=== PATIENT | male | born 1970 | race Caucasian/White ===

== ENCOUNTER → 2017-06-05 | Outpatient (CLI) | payer BC ==
--- NOTE | 2017-06-05 14:41 | DIAGNOSTIC IMAGING REPORT ---
R KNEE 1 OR 2 VIEWS ROUTINE CLINICAL HISTORY: Right knee pain. Arthritis. COMPARISON: None. DISCUSSION: The bony mineralization appears normal. There are no acute fractures. There are minor osteoarthritic changes. There is an equivocal loose body projected over the lateral tibial spine. There is no radiographic evidence of a significant joint effusion. IMPRESSION: 1. No acute fractures 2. No evidence of erosive disease 3. Mild degenerative change. Possible 3 mm loose body projected over the lateral tibial spine Electronically signed by: Jon Calhoun M.D. 06/05/2017 2:40 PM Dictated Date/Time: 06/05/2017 2:39 PM
--- NOTE | 2017-06-05 14:42 | DIAGNOSTIC IMAGING REPORT ---
SI JOINTS 3 OR MORE VIEWS CLINICAL HISTORY: M54.5 Bilateral low back pain without sciatica COMPARISON STUDY: No previous studies for comparison. FINDINGS: There is no SI joint fusion. There are no erosive changes. There is no SI joint diastases. No fractures are visualized. No destructive lesions are evident. IMPRESSION: No conventional radiographic evidence of sacroiliitis Electronically signed by: Jon Calhoun M.D. 06/05/2017 2:41 PM Dictated Date/Time: 06/05/2017 2:40 PM
--- NOTE | 2017-06-05 14:44 | DIAGNOSTIC IMAGING REPORT ---
R HAND MIN 3 VIEWS ROUTINE CLINICAL HISTORY: M54.5 Bilateral low back pain without sciatica pain COMPARISON: None. DISCUSSION: Minimal/mild degenerative change of the distal interphalangeal joints. No evidence for osteopenia. No significant marginal erosions. There is no evidence for soft tissue swelling. IMPRESSION: Mild degenerative change of the distal interphalangeal joints. Otherwise negative study. The above report was generated using voice recognition software. It may contain grammatical, syntax or spelling errors. Electronically signed by: Agusto Anne M.D. 06/05/2017 2:43 PM Dictated Date/Time: 06/05/2017 2:42 PM
--- NOTE | 2017-06-05 14:45 | DIAGNOSTIC IMAGING REPORT ---
L HAND MIN 3 VIEWS ROUTINE CLINICAL HISTORY: Left hand pain COMPARISON: None. DISCUSSION: The bony mineralization appears normal. There is equivocal small navicular cyst. There are no fractures. There is no erosive disease. IMPRESSION: 1. No acute fractures 2. No evidence of erosive disease 3. Probable 5 mm navicular cyst Electronically signed by: Jon Calhoun M.D. 06/05/2017 2:44 PM Dictated Date/Time: 06/05/2017 2:43 PM
[2017-06-05 16:02] LABS: URIC ACID 5.6 mg/dl (2.6-7.2)
== END | disposition home or self-care (01) ==
LOC: C.LAB1850 14:02
PROVIDERS: ATTEND Internal Medicine Rheumatology
DX: M54.5 Low back pain (principal); M06.4 Inflammatory polyarthropathy; M79.641 Pain in right hand; M79.642 Pain in left hand; M25.569 Pain in unspecified knee

== ENCOUNTER → 2017-08-03 | Outpatient (CLI) | payer BC | END | disposition home or self-care (01) | LOC: C.LAB1850 13:44 | PROVIDERS: ATTEND Internal Medicine Rheumatology | DX: M06.4 Inflammatory polyarthropathy (principal); M54.5 Low back pain; Z79.899 Other long term (current) drug therapy ==